=== PATIENT | male | born 1970 | race Caucasian/White ===

== ENCOUNTER → 2016-04-05 | Outpatient (CLI) | payer BC ==
--- NOTE | 2016-04-05 09:10 | XR ---
EXAMINATION TYPE: XR abdomen 2V DATE OF EXAM: 04/05/2016 9:01 AM COMPARISON: NONE HISTORY: Left upper and lower quadrant pain with constipation FINDINGS: The osseous structures are intact. The bowel gas pattern is nonspecific. Lung bases are clear. Arth ropathy of the hips noted. Findings suggest chronic acetabular labral tears. IMPRESSION: 1. Nonspecific abdomen.
== END | disposition home or self-care (01) ==
LOC: RADXRMAIN 08:47
PROVIDERS: ATTEND Internal Medicine
DX: K59.00 Constipation, unspecified (principal)
CPT/HCPCS: 74020

== ENCOUNTER 2016-04-09 15:30 | Emergency (ER) | payer BC ==
--- NOTE | 2016-04-09 17:00 | ED ---
Abdominal Pain HPI - General Chief Complaint: Abdominal Pain Stated Complaint: Abd Pain Time Seen by Provider: 04/09/16 16:27 Source: patient, RN notes reviewed Mode of arrival: ambulatory Limitations: no limitations - History of Present Illness Initial Comments: Patient is a 45-year-old male presents to the emergency room for evaluation of abdominal pain. Patient states he began developing abdominal pain about a week ago. Patient states he had not had a bowel movement from last until Sunday. Patient states he follow-up with his primary care provider was told he was constipated and was sent home with laxatives. Patient states he took milk of magnesia mixed with prune juice. Patient states he had a decent bowel movement. Patient states today while making a bowel movement he had increased midepigastric pain. Patient states he's never had pain like this before. Patient states the pain comes in waves. Patient states his bowel movement today was slightly loose. Patient denies any discoloration of his stools. Patient denies blood in his stools. Patient denies pain or burning during urination, trouble urinating or blood in urine. Patient denies any nausea or vomiting. Patient denies trying any new foods. Patient denies recent travel outside the country. Patient denies any fevers or chills. Patient denies chest pain or shortness of breath. Patient denies any history of abdominal surgeries. Patient states afraid he has an obstruction. - Related Data Home Medications Medication Instructions Recorded Confirmed Aspirin 325 mg PO DAILY 04/09/16 04/09/16 Allergies Allergy/AdvReac Type Severity Reaction Status Date / Time codeine Allergy Unknown Verified 04/09/16 16:54 Childhood Penicillins Allergy Unknown Verified 04/09/16 16:54 Childhood Review of Systems ROS Statement: Those systems with pertinent positive or pertinent negative responses have been documented in the HPI. ROS Other: All systems not noted in ROS Statement are negative. Past Medical History Additional Past Medical History / Comment(s): hypoglycemia, tinnitus History of Any Multi-Drug Resistant Organisms: None Reported Past Surgical History: No Surgical Hx Reported Past Psychological History: No Psychological Hx Reported Smoking Status: Current every day smoker Past Alcohol Use History: None Reported Past Drug Use History: Marijuana General Exam - General Exam Comments Initial Comments: Sitting in exam room in no acute distress. Limitations: no limitations General appearance: alert, in no apparent distress Head exam: Present: atraumatic, normocephalic, normal inspection Eye exam: Present: normal appearance ENT exam: Present: normal exam Neck exam: Present: normal inspection Respiratory exam: Present: normal lung sounds bilaterally. Absent: respiratory distress Cardiovascular Exam: Present: regular rate, normal rhythm, normal heart sounds GI/Abdominal exam: Present: soft, normal bowel sounds. Absent: distended, tenderness, guarding, rebound, rigid Extremities exam: Present: normal inspection Back exam: Present: normal inspection Neurological exam: Present: alert, oriented X3, CN II-XII intact, normal gait Psychiatric exam: Present: normal affect, normal mood Skin exam: Present: warm, dry, intact, normal color. Absent: rash Course Vital Signs 04/09/16 04/09/16 04/09/16 16:02 17:53 19:30 Temperature 98.4 F 98.1 F 98.2 F Pulse Rate 85 78 Respiratory 18 18 20 Rate Blood Pressure 127/88 120/65 O2 Sat by Pulse 98 98 Oximetry Medical Decision Making - Medical Decision Making Patient is a 45-year-old male who presents to the emergency room for evaluation of abdominal pain. Blood work shows no significant findings. KUB x-ray significant for a large amount of fecal material. Patient states he still has a prescription for lactulose from his primary care provider. Advised patient to use prescription and to drink plenty of water. Patient states he understands everything that was discussed with him. Return parameters discussed. Case discussed with Dr. Marcus. - Lab Data Result diagrams: 04/09/16 17:13 04/09/16 16:39 Lab Results 04/09/16 04/09/16 04/09/16 Range/Units 16:39 17:13 17:13 WBC 8.1 (3.8-10.6) k/uL RBC 4.44 (4.30-5.90) m/uL Hgb 14.1 (13.0-17.5) gm/dL Hct 42.5 (39.0-53.0) % MCV 95.9 (80.0-100.0) fL MCH 31.8 (25.0-35.0) pg MCHC 33.2 (31.0-37.0) g/dL RDW 13.0 (11.5-15.5) % Plt Count 228 (150-450) k/uL Neutrophils % 66 % Lymphocytes % 24 % Monocytes % 6 % Eosinophils % 2 % Basophils % 1 % Neutrophils # 5.4 (1.3-7.7) k/uL Lymphocytes # 2.0 (1.0-4.8) k/uL Monocytes # 0.5 (0-1.0) k/uL Eosinophils # 0.2 (0-0.7) k/uL Basophils # 0.0 (0-0.2) k/uL Sodium 139 (137-145) mmol/L Potassium 4.1 (3.5-5.1) mmol/L Chloride 104 (98-107) mmol/L Carbon Dioxide 25 (22-30) mmol/L Anion Gap 10 mmol/L BUN 14 (9-20) mg/dL Creatinine 0.70 (0.66-1.25) mg/dL Est GFR (MDRD) Af Amer >60 (>60 ml/min/1.73 sqM) Est GFR (MDRD) Non-Af >60 (>60 ml/min/1.73 sqM) Glucose 125 H (74-99) mg/dL Calcium 9.3 (8.4-10.2) mg/dL Total Bilirubin 0.3 (0.2-1.3) mg/dL AST 24 (17-59) U/L ALT 35 (21-72) U/L Alkaline Phosphatase 59 (38-126) U/L Total Protein 6.3 (6.3-8.2) g/dL Albumin 4.2 (3.5-5.0) g/dL Amylase 70 (30-110) U/L Lipase 205 (23-300) U/L Urine Color Colorless Urine Appearance Clear (Clear) Urine pH 5.0 (5.0-8.0) Ur Specific [place] 1.001 (1.001-1.035) Urine Protein Negative (Negative) Urine Glucose (UA) Negative (Negative) Urine Ketones Negative (Negative) Urine Blood Negative (Negative) Urine Nitrate Negative (Negative) Urine Bilirubin Negative (Negative) Urine Urobilinogen <2.0 (<2.0) mg/dL Ur Leukocyte Esterase Negative (Negative) - Radiology Data Radiology results: report reviewed, image reviewed Disposition Clinical Impression: Abdominal pain, Constipation Disposition: HOME SELF-CARE Condition: Good Instructions: Constipation (ED), High Fiber Diet (ED) Additional Instructions: Take prescribed laxatives as needed. Drink plenty of water. Please follow up with primary care provider in 1-2 days. If any new symptom arises, symptoms worsen or fever develops, return to ER as soon as possible. Referrals: Shayla Robledo MD [Primary Care Provider] - 1-2 days Time of Disposition: 19:25
[2016-04-09 17:31] LABS: Basophils % (A) 1 %; CH 32.8; CHCM 34.4; Eosinophils # (A) 0.2 k/uL (0-0.7); Eosinophils % (A) 2 %; HCT 42.5 % (39.0-53.0); HDW 2.26; HGB 14.1 gm/dL (13.0-17.5); Luc # (Auto) 0.11; Luc % (Auto) 1; Lymphocytes % (A) 24 %; MCH 31.8 pg (25.0-35.0); MCHC 33.2 g/dL (31.0-37.0); MCV 95.9 fL (80.0-100.0); Mean Platelet Volume 6.9; Monocytes # (A) 0.5 k/uL (0-1.0); Monocytes % (A) 6 %; Neutrophils # (A) 5.4 k/uL (1.3-7.7); Neutrophils % (A) 66 %; RBC 4.44 m/uL (4.30-5.90); WBC 8.1 k/uL (3.8-10.6); WBC (Perox) 8.19
[2016-04-09 17:35] LABS: Appearance,Urine Clear (Clear); Bilirubin,Urine Negative (Negative); Glucose,Urine (UA) Negative (Negative); Ketones,Urine Negative (Negative); Leukocyte Esterase,Urine Negative (Negative); Nitrite,Urine Negative (Negative); Protein,Urine Negative (Negative); Specific Gravity,Urine 1.001 (1.001-1.035); UA Billing (MACRO vs. MICRO) CHEM; Urobilinogen,Urine <2.0 mg/dL (<2.0)
[2016-04-09 17:50] LABS: ALT 35 U/L (21-72); AST 24 U/L (17-59); Alkaline Phosphatase 59 U/L (38-126); Amylase 70 U/L (30-110); Anion Gap 10 mmol/L; Blood Urea Nitrogen 14 mg/dL (9-20); Calcium 9.3 mg/dL (8.4-10.2); Carbon Dioxide 25 mmol/L (22-30); Chloride 104 mmol/L (98-107); Glucose 125 mg/dL (74-99); Non-African American GFR(MDRD) >60 (>60 ml/min/1.73 sqM); Potassium 4.1 mmol/L (3.5-5.1); Sodium 139 mmol/L (137-145); Total Bilirubin 0.3 mg/dL (0.2-1.3); Total Protein 6.3 g/dL (6.3-8.2)
--- NOTE | 2016-04-09 18:24 | XR ---
EXAMINATION TYPE: XR KUB DATE OF EXAM: 04/09/2016 6:18 PM COMPARISON: 04/05/2016 HISTORY: Abdominal pain TECHNIQUE: 2 views FINDINGS: Bowel gas pattern is normal. There is no sign of intestinal obstruction or pneumoperitoneum . Fecal pattern is normal. There is no sign of a mass. Lung bases are clear. There are no pathologic calcifications over the kidneys. IMPRESSION: Nonacute abdomen. No change.
[2016-04-09 19:31] VITALS: BP 120/65; PULSE 78; RESP 20; TEMP 98.2
== END 2016-04-09 19:31 | disposition home or self-care (01) ==
LOC: EC 15:30
DX: K59.00 Constipation, unspecified (principal); Z79.82 Long term (current) use of aspirin; Z88.5 Allergy status to narcotic agent; Z88.0 Allergy status to penicillin; F17.200 Nicotine dependence, unspecified, uncomplicated; F12.90 Cannabis use, unspecified, uncomplicated
CPT/HCPCS: 36415; 74000; 80053; 81003; 82150; 83690; 85025; 99284

== ENCOUNTER 2016-04-19 08:08 | Day surgery (SDC) | payer BC ==
[2016-04-14 10:24] VITALS: BMI 21.7
[~2016-04-19 08:08] MED LIST: LACTATED RINGERS 1,000 ML IV SCH
[2016-04-19 09:25] VITALS: RESP 16; TEMP 97.5
[2016-04-19 09:25] LABS: Glucose,Whole Blood 85 mg/dL (75-99)
[2016-04-19] MEDS ORDERED: LIDOCAINE 1% 20 ML VIAL (10MG/ML) FOR IV START INTRADERMA ONE (09:25)
[2016-04-19] MEDS ORDERED: GLUCAGON 1 MG/ML VIAL ONE (09:30)
[2016-04-19] MEDS ORDERED: LIDOCAINE 1% INJ 10MG/ML (20 ML MDV) ONE (09:30)
[2016-04-19] MEDS ORDERED: PROPOFOL 10 MG/ML 20 ML VIAL IV ONE (09:30)
--- NOTE | 2016-04-19 09:32 | P.GSHP ---
History of Present Illness H&P Date: 04/19/16 Chief Complaint: Constipation, abdominal pain This a 45-year-old male presents today for colonoscopy. Patient with constipation and abdominal pain. He has a strong family history of colon cancer with his mother having colon cancer. His last colonoscopy was 5 years ago. Past Medical History Additional Past Medical History / Comment(s): hypoglycemia, MENIERE'S DISEASE. 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 CONSTIPATION Past Anesthesia/Blood Transfusion Reactions: No Reported Reaction Past Psychological History: No Psychological Hx Reported Smoking Status: Current every day smoker Past Alcohol Use History: Occasional Additional Past Alcohol Use History / Comment(s): HAS BEEN SMOKING 1 PPD SINCE 1986 Past Drug Use History: Marijuana Additional Drug Use History / Comment(s): USES MAYBE EVERY 3 WEEKS - Past Family History Mother Family Medical History: Cancer Additional Family Medical History / Comment(s): COLON Brother(s) Family Medical History: Cancer Additional Family Medical History / Comment(s): 2 BROTHERS WITH SKIN CANCER Father Family Medical History: Cancer Additional Family Medical History / Comment(s): SKIN Sister(s) Family Medical History: Cancer Additional Family Medical History / Comment(s): SKIN Medications and Allergies Home Medications Medication Instructions Recorded Confirmed Type Aspirin 325 mg PO DAILY 04/09/16 04/14/16 History Allergies Allergy/AdvReac Type Severity Reaction Status Date / Time codeine Allergy Unknown Verified 04/09/16 16:54 Childhood Penicillins Allergy Unknown Verified 04/09/16 16:54 Childhood Surgical - Exam Vital Signs Temp Pulse Resp BP Pulse Ox 97.5 F L 68 16 130/67 94 L 04/19/16 09:21 04/19/16 09:21 04/19/16 09:21 04/19/16 09:21 04/19/16 09:21 - General well developed, no distress - Eyes PERRL - ENT normal pinna - Neck no masses - Respiratory normal expansion - Cardiovascular Rhythm: regular - Abdomen Abdomen: soft, tender (Mild tender midabdomen) Assessment and Plan Plan: Constipation Abdominal pain Family history colon cancer We'll perform colonoscopy
--- NOTE | 2016-04-19 09:53 | P.OP ---
Date of Procedure: 04/19/16 Preoperative Diagnosis: Abdominal pain Constipation Family history colon cancer Postoperative Diagnosis: Normal colon Procedure(s) Performed: Colonoscopy Anesthesia: MAC Surgeon: Aldair Santos Pathology: none sent Condition: stable Disposition: PACU Description of Procedure: PROCEDURE: The patient was placed on the endoscopy table in the lateral position. Digital rectal examination was performed which revealed no abnormalities. The prostate was symmetrical without nodules. Flexible colonoscope was then placed in the patient's anus and passed throughout the entire colon. The ileocecal valve was visualized. The cecum, ascending, transverse, descending and sigmoid colon were normal. The rectum was normal as well. There were no masses, polyps or diverticula noted in the entire colon. SUMMARY OF FINDINGS: Normal colonoscopy.
[2016-04-19 10:32] VITALS: BP 142/66; PULSE 60
== END 2016-04-19 11:19 | disposition home or self-care (01) ==
LOC: ORWHC2ENDO 08:08
PROVIDERS: ATTEND Surgery
DX: K59.00 Constipation, unspecified (principal); R10.9 Unspecified abdominal pain; Z80.0 Family history of malignant neoplasm of digestive organs; K04.7 Periapical abscess without sinus; H81.09 Meniere's disease, unspecified ear; F17.200 Nicotine dependence, unspecified, uncomplicated; Z79.82 Long term (current) use of aspirin; Z88.0 Allergy status to penicillin; Z88.5 Allergy status to narcotic agent
CPT/HCPCS: 45378; J1610; J2001; J2704; 99153

== ENCOUNTER 2017-05-08 23:24 | Emergency (ER) | payer BC ==
--- NOTE | 2017-05-08 23:32 | ED ---
Psych HPI - General Source: patient, EMS, RN notes reviewed Mode of arrival: EMS - History of Present Illness MD Complaint: suicidal ideation, feels depressed <Jude Marques - Last Filed: 05/09/17 00:36> <Raffi eKnnedy - Last Filed: 05/09/17 05:20> - General Stated Complaint: Overdose Time Seen by Provider: 05/08/17 23:24 - History of Present Illness Initial Comments: This is a 38-year-old male who is been drinking tonight who took 75 mg daily and into 5 mg Notrees was after an argument with his girlfriend. Express desire to hurt himself and kill himself. He does not know how much alcohol he drank. He denies any other substance at this time in by EMS he was somewhat lethargic 30 minutes prior to arrival. (Jude Marques) - Related Data Home Medications Medication Instructions Recorded Confirmed Aspirin 325 mg PO DAILY 04/09/16 04/14/16 Allergies Allergy/AdvReac Type Severity Reaction Status Date / Time codeine Allergy Unknown Verified 05/08/17 23:41 Childhood Penicillins Allergy Unknown Verified 05/08/17 23:41 Childhood Review of Systems ROS Other: All systems not noted in ROS Statement are negative. <Jude Marques - Last Filed: 05/09/17 00:36> ROS Other: All systems not noted in ROS Statement are negative. <Raffi Kennedy - Last Filed: 05/09/17 05:20> ROS Statement: Those systems with pertinent positive or pertinent negative responses have been documented in the HPI. Past Medical History Additional Past Medical History / Comment(s): hypoglycemia, MENIERE'S DISEASE. 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 CONSTIPATION Past Anesthesia/Blood Transfusion Reactions: No Reported Reaction Past Psychological History: No Psychological Hx Reported Smoking Status: Current every day smoker Past Alcohol Use History: Occasional Additional Past Alcohol Use History / Comment(s): HAS BEEN SMOKING 1 PPD SINCE 1986 Past Drug Use History: Marijuana Additional Drug Use History / Comment(s): USES MAYBE EVERY 3 WEEKS - Past Family History Mother Family Medical History: Cancer Additional Family Medical History / Comment(s): COLON Brother(s) Family Medical History: Cancer Additional Family Medical History / Comment(s): 2 BROTHERS WITH SKIN CANCER Father Family Medical History: Cancer Additional Family Medical History / Comment(s): SKIN Sister(s) Family Medical History: Cancer Additional Family Medical History / Comment(s): SKIN <Jude Marques - Last Filed: 05/09/17 00:36> General Exam Limitations: physical limitation (Patient is lethargic and weak/intoxicated) General appearance: alert, in no apparent distress Head exam: Present: atraumatic, normocephalic, normal inspection Eye exam: Present: normal appearance, PERRL, EOMI. Absent: scleral icterus, conjunctival injection, periorbital swelling ENT exam: Present: normal exam, mucous membranes moist Neck exam: Present: normal inspection. Absent: tenderness, meningismus, lymphadenopathy Respiratory exam: Present: normal lung sounds bilaterally. Absent: respiratory distress, wheezes, rales, rhonchi, stridor Cardiovascular Exam: Present: regular rate, normal rhythm, normal heart sounds. Absent: systolic murmur, diastolic murmur, rubs, gallop, clicks GI/Abdominal exam: Present: soft, normal bowel sounds. Absent: distended, tenderness, guarding, rebound, rigid Extremities exam: Present: normal inspection, full ROM, normal capillary refill. Absent: tenderness, pedal edema, joint swelling, calf tenderness Back exam: Present: normal inspection Neurological exam: Present: alert, oriented X3, CN II-XII intact Psychiatric exam: Present: depressed, flat affect, suicidal ideation Skin exam: Present: warm, dry, intact, normal color. 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 Kennedy at our shift change. (Jude Marques) 05/09/17 05:18 Patient was seen by mental health services with recommendation of discharge. Patient reevaluated and resting comfortably in bed. Patient denies suicidal ideation and does contract for safety. Patient states he did not believe the medication that he took would harm him. (Raffi Kennedy) Medical Decision Making - Lab Data Result diagrams: 05/08/17 23:30 05/08/17 23:30 - EKG Data -: EKG Interpreted by De EKG shows normal: sinus rhythm (Normal sinus rhythm rate of 89. Interval 150 to QRS duration 90 QT since QTC of 364/442 st-t wave changes) <Jude Marques - Last Filed: 05/09/17 00:36> - Lab Data Result diagrams: 05/08/17 23:30 05/08/17 23:30 <Raffi Kennedy - Last Filed: 05/09/17 05:20> - Lab Data Lab Results 05/08/17 05/08/17 05/08/17 Range/Units 23:30 23:30 23:40 WBC 8.1 (3.8-10.6) k/uL RBC 4.57 (4.30-5.90) m/uL Hgb 14.5 (13.0-17.5) gm/dL Hct 45.8 (39.0-53.0) % MCV 100.3 H (80.0-100.0) fL MCH 31.7 (25.0-35.0) pg MCHC 31.6 (31.0-37.0) g/dL RDW 12.3 (11.5-15.5) % Plt Count 280 (150-450) k/uL Neutrophils % 63 % Lymphocytes % 30 % Monocytes % 4 % Eosinophils % 2 % Basophils % 1 % Neutrophils # 5.1 (1.3-7.7) k/uL Lymphocytes # 2.4 (1.0-4.8) k/uL Monocytes # 0.3 (0-1.0) k/uL Eosinophils # 0.1 (0-0.7) k/uL Basophils # 0.0 (0-0.2) k/uL Sodium 145 (137-145) mmol/L Potassium 4.0 (3.5-5.1) mmol/L Chloride 106 (98-107) mmol/L Carbon Dioxide 27 (22-30) mmol/L Anion Gap 12 mmol/L BUN 8 L (9-20) mg/dL Creatinine 0.77 (0.66-1.25) mg/dL Est GFR (MDRD) Af Amer >60 (>60 ml/min/1.73 sqM) Est GFR (MDRD) Non-Af >60 (>60 ml/min/1.73 sqM) Glucose 83 (74-99) mg/dL Calcium 9.6 (8.4-10.2) mg/dL Total Bilirubin 0.2 (0.2-1.3) mg/dL AST 28 (17-59) U/L ALT 40 (21-72) U/L Alkaline Phosphatase 63 (38-126) U/L Total Protein 6.8 (6.3-8.2) g/dL Albumin 4.3 (3.5-5.0) g/dL Amylase 113 H (30-110) U/L Lipase 612 H (23-300) U/L Salicylates <1.0 mg/dL Urine Opiates Screen Not Detected (NotDetected) Ur Oxycodone Screen Not Detected (NotDetected) Urine Methadone Screen Not Detected (NotDetected) Ur Propoxyphene Screen Not Detected (NotDetected) Acetaminophen <10.0 ug/mL Ur Barbiturates Screen Not Detected (NotDetected) U Tricyclic Antidepress Not Detected (NotDetected) Ur Phencyclidine Scrn Not Detected (NotDetected) Ur Amphetamines Screen Not Detected (NotDetected) U Methamphetamines Scrn Not Detected (NotDetected) U Benzodiazepines Scrn Not Detected (NotDetected) Urine Cocaine Screen Not Detected (NotDetected) U Marijuana (THC) Screen Not Detected (NotDetected) Serum Alcohol 201 mg/dL Disposition <JeraldJude - Last Filed: 05/09/17 00:36> Time of Disposition: 05:20 <Raffi Kennedy - Last Filed: 05/09/17 05:20> Clinical Impression: Alcohol intoxication, Benzodiazepine overdose Disposition: HOME SELF-CARE Condition: Stable Instructions: Benzodiazepine Overdose (ED), Alcohol Intoxication (ED), Depression (ED), Suicide Prevention for Adults (ED) Additional Instructions: Not taking medications except as directed. Limit alcohol use. Return for thoughts of self-harm or worsening symptoms or other concerns. Follow-up with mental health services as directed. Referrals: Shayla Robledo MD [Primary Care Provider] - 1-2 days
[2017-05-08 23:43] LABS: Basophils % (A) 1 %; Eosinophils # (A) 0.1 k/uL (0-0.7); Eosinophils % (A) 2 %; HCT 45.8 % (39.0-53.0); HGB 14.5 gm/dL (13.0-17.5); Lymphocytes # (A) 2.4 k/uL (1.0-4.8); Lymphocytes % (A) 30 %; MCH 31.7 pg (25.0-35.0); MCHC 31.6 g/dL (31.0-37.0); MCV 100.3 fL (80.0-100.0); Monocytes # (A) 0.3 k/uL (0-1.0); Monocytes % (A) 4 %; Neutrophils # (A) 5.1 k/uL (1.3-7.7); Neutrophils % (A) 63 %; Platelet Count 280 k/uL (150-450); RBC 4.57 m/uL (4.30-5.90); RDW 12.3 % (11.5-15.5); WBC 8.1 k/uL (3.8-10.6)
[2017-05-08 23:47] VITALS: RESP 18
[2017-05-08 23:54] LABS: ALT 40 U/L (21-72); AST 28 U/L (17-59); Acetaminophen <10.0 ug/mL; Albumin 4.3 g/dL (3.5-5.0); Alkaline Phosphatase 63 U/L (38-126); Amylase 113 U/L (30-110); Anion Gap 12 mmol/L; Blood Urea Nitrogen 8 mg/dL (9-20); Calcium 9.6 mg/dL (8.4-10.2); Carbon Dioxide 27 mmol/L (22-30); Chloride 106 mmol/L (98-107); Glucose 83 mg/dL (74-99); Lipase 612 U/L (23-300); Salicylate <1.0 mg/dL; Sodium 145 mmol/L (137-145); Total Bilirubin 0.2 mg/dL (0.2-1.3); Total Protein 6.8 g/dL (6.3-8.2)
[2017-05-08 23:56] LABS: Alcohol 201 mg/dL
[2017-05-09 00:05] LABS: Amphetamine Screen,Urine Not Detected (NotDetected); Barbiturate Screen,Urine Not Detected (NotDetected); Benzodiazepines Screen,Urine Not Detected (NotDetected); Cocaine Screen,Urine Not Detected (NotDetected); Methadone Screen, Urine Not Detected (NotDetected); Opiate Screen,Urine Not Detected (NotDetected); Oxycodone Screen, Urine Not Detected (NotDetected); Phencyclidine Screen,Urine Not Detected (NotDetected); Tricyclic Antidepressant,Urine Not Detected (NotDetected); Urn Cannabinoid Scrn Not Detected (NotDetected)
[2017-05-09 05:34] VITALS: BP 135/82; PULSE 90; TEMP 98.2
== END 2017-05-09 05:44 | disposition home or self-care (01) ==
LOC: EC 23:24
DX: T42.4X2A Poisoning by benzodiazepines, intentional self-harm, initial encounter (principal); F10.120 Alcohol abuse with intoxication, uncomplicated; F17.210 Nicotine dependence, cigarettes, uncomplicated; Z79.82 Long term (current) use of aspirin; Z88.0 Allergy status to penicillin; Z88.5 Allergy status to narcotic agent
CPT/HCPCS: 36415; 80053; 80306; 80320; 82075; 82150; 83520; 83690; 85025; 93005; 99285

== ENCOUNTER 2020-07-15 11:20 | Day surgery (SDC) | payer BC, OTHER ==
[2020-07-13 15:12] VITALS: BMI 21.1
[2020-07-15 13:03] LABS: Glucose,Whole Blood 91 mg/dL (75-99)
[2020-07-15 13:04] VITALS: TEMP 98.2
[2020-07-15] MEDS ORDERED: LIDOCAINE 1% INJ 10MG/ML (20 ML MDV) ONE (13:14)
[2020-07-15] MEDS ORDERED: PROPOFOL 10 MG/ML 20 ML VIAL IV ONE (13:14)
--- NOTE | 2020-07-15 13:17 | P.GSHP ---
History of Present Illness H&P Date: 07/15/20 Chief Complaint: GI bleed This a 49-year-old male who presents today for EGD colonoscopy. He's had issues with GI bleed. Past Medical History Additional Past Medical History / Comment(s): hypoglycemia, MENIERE'S DISEASE, irregular bowel movements last 1 1/2 months, History of Any Multi-Drug Resistant Organisms: None Reported Past Surgical History: Orthopedic Surgery Additional Past Surgical History / Comment(s): surgery left middle finger to remove glass Past Anesthesia/Blood Transfusion Reactions: No Reported Reaction Additional Past Anesthesia/Blood Transfusion Reaction / Comment(s): vertigo constantly Smoking Status: Current every day smoker - Past Family History Mother Family Medical History: Cancer Additional Family Medical History / Comment(s): COLON, skin, breast, lung Brother(s) Family Medical History: Cancer Additional Family Medical History / Comment(s): 2 BROTHERS WITH SKIN CANCER Father Family Medical History: Cancer Additional Family Medical History / Comment(s): SKIN Sister(s) Family Medical History: Cancer Additional Family Medical History / Comment(s): SKIN Medications and Allergies Home Medications Medication Instructions Recorded Confirmed Type Aspirin 325 mg PO DAILY PRN 04/09/16 07/13/20 History Multivitamins, Thera [Multivitamin 1 tab PO DAILY 07/13/20 07/13/20 History (formulary)] Allergies Allergy/AdvReac Type Severity Reaction Status Date / Time codeine Allergy Unknown Verified 07/13/20 15:02 Childhood Penicillins Allergy Unknown Verified 07/13/20 15:02 Childhood Surgical - Exam Vital Signs Temp Pulse Resp BP Pulse Ox 98.2 F 69 20 139/70 98 07/15/20 12:50 07/15/20 12:50 07/15/20 12:50 07/15/20 12:50 07/15/20 12:50 - General well developed, well nourished, no distress - Eyes PERRL - ENT normal pinna - Neck no masses - Respiratory normal expansion - Cardiovascular Rhythm: regular - Abdomen Abdomen: soft, non tender Assessment and Plan Assessment: GI bleed. We'll perform colonoscopy.
--- NOTE | 2020-07-15 13:36 | P.OP ---
Date of Procedure: 07/15/20 Preoperative Diagnosis: GI bleed Postoperative Diagnosis: Antral gastritis Duodenitis Interventional hemorrhoids Procedure(s) Performed: EGD Colonoscopy Anesthesia: MAC Surgeon: Aldair Santos Pathology: other (Antrum, duodenum) Condition: stable Disposition: PACU Description of Procedure: The patient's placed on the endoscopy table in the lateral position. He received IV sedation. The gastroscope placed oropharynx passed in the esophagus and stomach. The scope was placed through the pylorus. The first and second portion of the duodenum. Mildly inflamed. A biopsies performed. Scope was then brought back the antrum and this was mildly inflamed a biopsies performed. The scope was retroflexed and remainder stomach appeared normal. The GE junction was examined. There is no evidence of hiatal hernia. The distal esophagus appeared normal. The GE junction was at 47. The proximal esophagus appeared normal. Scope was withdrawn for patient. Next digital rectal exam was performed which revealed internal hemorrhoids. The flexible colonoscope was then placed patient anus passed rotator entire colon. The ileocecal valve was visualized. The cecum, ascending and transverse colon appeared normal. The colon was quite tortuous. The transverse descending and sigmoid colon appeared normal. Scope was brought back the rectum this was normal. Scope was withdrawn for patient.
[2020-07-15 13:42] VITALS: RESP 16
[2020-07-15 13:58] VITALS: BP 125/78; PULSE 68
== END 2020-07-15 14:13 | disposition home or self-care (01) ==
LOC: ORWHC2ENDO 11:20
PROVIDERS: ATTEND Surgery
DX: K29.80 Duodenitis without bleeding (principal); K29.50 Unspecified chronic gastritis without bleeding; K64.8 Other hemorrhoids; E16.2 Hypoglycemia, unspecified; K92.2 Gastrointestinal hemorrhage, unspecified; H81.09 Meniere's disease, unspecified ear; Z98.890 Other specified postprocedural states; R42 Dizziness and giddiness; F17.200 Nicotine dependence, unspecified, uncomplicated; Z80.0 Family history of malignant neoplasm of digestive organs; Z80.3 Family history of malignant neoplasm of breast; Z80.1 Family history of malignant neoplasm of trachea, bronchus and lung; Z80.8 Family history of malignant neoplasm of other organs or systems; Z88.5 Allergy status to narcotic agent; Z88.0 Allergy status to penicillin
CPT/HCPCS: 88305; 45378; 43239; J2001; J2704

== ENCOUNTER 2021-07-26 08:36 | Emergency (ER) | payer OTHER ==
[2021-07-26 08:50] VITALS: TEMP 98.6
[2021-07-26] MEDS ORDERED: SODIUM CHLORIDE 0.9% 1,000 ML IV STA (09:16)
[2021-07-26] MEDS ORDERED: SODIUM CHLORIDE 0.9% 500 ML 500 ML IV STA (09:16)
[2021-07-26 09:44] VITALS: RESP 18
--- NOTE | 2021-07-26 09:49 | ED ---
Abdominal Pain HPI - General Chief Complaint: Abdominal Pain Stated Complaint: right side pain Time Seen by Provider: 07/26/21 08:52 Source: patient, RN notes reviewed Mode of arrival: ambulatory Limitations: no limitations - History of Present Illness Initial Comments: 50-year-old male presents emergency Department chief complaint right flank pain. Patient states started last week but has been increasing in symptoms. Nothing really makes the pain feel better or worse a nausea no vomiting he states initially that he just injured himself. He's had no prior abdominal surgeries no dysuria no hematuria no diarrhea no constipation patient states that he has no radicular symptoms. - Related Data Home Medications Medication Instructions Recorded Confirmed Aspirin 325 mg PO DAILY PRN 04/09/16 07/26/21 Vitamin B Complex 1 cap PO DAILY 07/26/21 07/26/21 Previous Rx's Medication Instructions Recorded Tamsulosin [Flomax] 0.4 mg PO DAILY #14 cap 07/26/21 Allergies Allergy/AdvReac Type Severity Reaction Status Date / Time codeine Allergy Unknown Verified 07/26/21 10:17 Childhood Penicillins Allergy Unknown Verified 07/26/21 10:17 Childhood Review of Systems ROS Statement: Those systems with pertinent positive or pertinent negative responses have been documented in the HPI. ROS Other: All systems not noted in ROS Statement are negative. Past Medical History Past Medical History: Asthma Additional Past Medical History / Comment(s): hypoglycemia, MENIERE'S DISEASE, irregular bowel movements last 1 1/2 months, History of Any Multi-Drug Resistant Organisms: None Reported Past Surgical History: Orthopedic Surgery Additional Past Surgical History / Comment(s): surgery left middle finger to remove glass Past Anesthesia/Blood Transfusion Reactions: No Reported Reaction Additional Past Anesthesia/Blood Transfusion Reaction / Comment(s): vertigo constantly Past Psychological History: No Psychological Hx Reported Smoking Status: Current every day smoker Past Alcohol Use History: Occasional Past Drug Use History: Marijuana - Past Family History Mother Family Medical History: Cancer Additional Family Medical History / Comment(s): COLON, skin, breast, lung Brother(s) Family Medical History: Cancer Additional Family Medical History / Comment(s): 2 BROTHERS WITH SKIN CANCER Father Family Medical History: Cancer Additional Family Medical History / Comment(s): SKIN Sister(s) Family Medical History: Cancer Additional Family Medical History / Comment(s): SKIN General Exam Limitations: no limitations General appearance: alert, in no apparent distress Head exam: Present: atraumatic, normocephalic, normal inspection Neck exam: Present: normal inspection. Absent: tenderness, meningismus, lymph adenopathy Respiratory exam: Present: normal lung sounds bilaterally. Absent: respiratory distress, wheezes, rales, rhonchi, stridor Cardiovascular Exam: Present: regular rate, normal rhythm, normal heart sounds. Absent: systolic murmur, diastolic murmur, rubs, gallop, clicks GI/Abdominal exam: Present: soft, tenderness (Right lower right flank), normal bowel sounds. Absent: distended, guarding, rebound, rigid Back exam: Present: CVA tenderness (R). Absent: CVA tenderness (L) Neurological exam: Present: alert Skin exam: Present: warm, dry, intact, normal color. Absent: rash Course Vital Signs 07/26/21 07/26/21 08:48 09:31 Temperature 98.6 F Pulse Rate 66 62 Respiratory 20 18 Rate Blood Pressure 141/85 138/82 O2 Sat by Pulse 99 96 Oximetry Medical Decision Making - Medical Decision Making 50-year-old male presents from for right-sided flank pain. There is no definite stone on CT. Urinalysis and labs unremarkable CT does show calcifications in enlarged prostate patient questioned he states he does have some hesitancy centimeters prostate checked. Patient will follow-up with urologist patient may have had abdominal wall injury as this is reproducible pain states that he does large amount of cigarettes causing injury. Patient understands the importance of following up with neurologist for concerns of prostate cancer. - Lab Data Result diagrams: 07/26/21 09:35 07/26/21 09:35 Lab Results 07/26/21 07/26/21 07/26/21 Range/Units 09:35 09:35 09:35 WBC 6.8 (3.8-10.6) k/uL RBC 4.49 (4.30-5.90) m/uL Hgb 15.0 (13.0-17.5) gm/dL Hct 45.5 (39.0-53.0) % MCV 101.4 H (80.0-100.0) fL MCH 33.4 (25.0-35.0) pg MCHC 32.9 (31.0-37.0) g/dL RDW 12.8 (11.5-15.5) % Plt Count 277 (150-450) k/uL MPV 6.6 Neutrophils % 70 % Lymphocytes % 21 % Monocytes % 5 % Eosinophils % 2 % Basophils % 1 % Neutrophils # 4.8 (1.3-7.7) k/uL Lymphocytes # 1.4 (1.0-4.8) k/uL Monocytes # 0.3 (0-1.0) k/uL Eosinophils # 0.1 (0-0.7) k/uL Basophils # 0.0 (0-0.2) k/uL Sodium 139 (137-145) mmol/L Potassium 4.3 (3.5-5.1) mmol/L Chloride 108 H (98-107) mmol/L Carbon Dioxide 26 (22-30) mmol/L Anion Gap 5 mmol/L BUN 14 (9-20) mg/dL Creatinine 0.77 (0.66-1.25) mg/dL Est GFR (CKD-EPI)AfAm >90 (>60 ml/min/1.73 sqM) Est GFR (CKD-EPI)NonAf >90 (>60 ml/min/1.73 sqM) Glucose 84 (74-99) mg/dL Calcium 9.2 (8.4-10.2) mg/dL Total Bilirubin 0.4 (0.2-1.3) mg/dL AST 24 (17-59) U/L ALT 23 (4-49) U/L Alkaline Phosphatase 57 (38-126) U/L Total Protein 6.7 (6.3-8.2) g/dL Albumin 4.2 (3.5-5.0) g/dL Amylase 97 (30-110) U/L Lipase 257 (23-300) U/L Urine Color Light Yellow Urine Appearance Clear (Clear) Urine pH 5.5 (5.0-8.0) Ur Specific [place] 1.006 (1.001-1.035) Urine Protein Negative (Negative) Urine Glucose (UA) Negative (Negative) Urine Ketones Negative (Negative) Urine Blood Negative (Negative) Urine Nitrite Negative (Negative) Urine Bilirubin Negative (Negative) Urine Urobilinogen <2.0 (<2.0) mg/dL Ur Leukocyte Esterase Negative (Negative) Disposition Clinical Impression: Prostate hypertrophy, Abdominal pain Disposition: HOME SELF-CARE Condition: Stable Instructions (If sedation given, give patient instructions): Abdominal Pain (ED) Additional Instructions: Please return to the Emergency Department if symptoms worsen or any other concerns. Prescriptions: Tamsulosin [Flomax] 0.4 mg PO DAILY #14 cap Is patient prescribed a controlled substance at d/c from ED?: No Referrals: None,Stated [Primary Care Provider] - 1-2 days Aguilar Smith MD [STAFF PHYSICIAN] - 1-2 days Time of Disposition: 10:46
[2021-07-26 09:51] LABS: Basophils % (A) 1 %; Eosinophils # (A) 0.1 k/uL (0-0.7); Eosinophils % (A) 2 %; HCT 45.5 % (39.0-53.0); Lymphocytes # (A) 1.4 k/uL (1.0-4.8); Lymphocytes % (A) 21 %; MCH 33.4 pg (25.0-35.0); MCHC 32.9 g/dL (31.0-37.0); MCV 101.4 fL (80.0-100.0); Mean Platelet Volume 6.6; Monocytes # (A) 0.3 k/uL (0-1.0); Monocytes % (A) 5 %; Neutrophils # (A) 4.8 k/uL (1.3-7.7); Neutrophils % (A) 70 %; Platelet Count 277 k/uL (150-450); RBC 4.49 m/uL (4.30-5.90); RDW 12.8 % (11.5-15.5); WBC 6.8 k/uL (3.8-10.6)
[2021-07-26 09:52] LABS: Appearance,Urine Clear (Clear); Bilirubin,Urine Negative (Negative); Blood,Urine Negative (Negative); Color,Urine Light Yellow; Glucose,Urine (UA) Negative (Negative); Ketones,Urine Negative (Negative); Leukocyte Esterase,Urine Negative (Negative); Nitrite,Urine Negative (Negative); PH, Urine 5.5 (5.0-8.0); Protein,Urine Negative (Negative); Specific Gravity,Urine 1.006 (1.001-1.035); Urobilinogen,Urine <2.0 mg/dL (<2.0)
[2021-07-26 10:03] LABS: ALT 23 U/L (4-49); AST 24 U/L (17-59); African American GFR (CKD) >90 (>60 ml/min/1.73 sqM); Albumin 4.2 g/dL (3.5-5.0); Alkaline Phosphatase 57 U/L (38-126); Amylase 97 U/L (30-110); Anion Gap 5 mmol/L; Blood Urea Nitrogen 14 mg/dL (9-20); Calcium 9.2 mg/dL (8.4-10.2); Carbon Dioxide 26 mmol/L (22-30); Chloride 108 mmol/L (98-107); Glucose 84 mg/dL (74-99); Lipase 257 U/L (23-300); Non-African American GFR(CKD) >90 (>60 ml/min/1.73 sqM); Potassium 4.3 mmol/L (3.5-5.1); Sodium 139 mmol/L (137-145); Total Bilirubin 0.4 mg/dL (0.2-1.3); Total Protein 6.7 g/dL (6.3-8.2)
--- NOTE | 2021-07-26 10:17 | CT ---
EXAMINATION TYPE: CT abdomen pelvis wo con DATE OF EXAM: 07/26/2021 COMPARISON: None HISTORY: Right flank pain. CT DLP: 390.3 mGycm Automated exposure control for dose reduction was used. TECHNIQUE: Helical acquisition of images was performed from the lung bases through the pelvis. FINDINGS: LUNG BASES: Emphysematous changes are noted LIVER/GB: No significant abnormality is appreciated. PANCREAS: No significant abnormality is seen. SPLEEN: No significant abnormality is seen. ADRENALS: No significant abnormality is seen. KIDNEYS: No significant abnormality is seen. URINARY BLADDER: No significant abnormality is seen. ADENOPATHY: None visualized. OSSEOUS STRUCTURES: Hypertrophic and degenerative changes spine. BOWEL: No significant abnormality is seen. OTHER: Aorta of normal caliber. Prostate calcifications are seen is mild bladder wall thickening. IMPRESSION: 1. Correlate for prostate hypertrophy. Additionally correlate for mild cystitis with mild circumferen tial bladder wall thickening incidentally noted.
[2021-07-26] MEDS ORDERED: KETOROLAC 15 MG/ML 1 ML VIAL IVP STA (10:20)
[2021-07-26] MEDS ORDERED: HYDROmorphone 0.5 MG/0.5 ML SYRINGE IVP STA (10:20)
[2021-07-26] MEDS ORDERED: ONDANSETRON 4 MG/2 ML VIAL IVP STA (10:21)
[2021-07-26] MEDS ORDERED: traMADol 50 MG STARTER PACK 3 TAB BTL PO STA (10:45)
[2021-07-26 11:06] VITALS: BP 135/75
[2021-07-26 11:38] VITALS: PULSE 58
== END 2021-07-26 11:47 | disposition home or self-care (01) ==
LOC: EC 08:36
DX: N40.0 Benign prostatic hyperplasia without lower urinary tract symptoms (principal); J45.909 Unspecified asthma, uncomplicated; F17.200 Nicotine dependence, unspecified, uncomplicated; Z88.0 Allergy status to penicillin; Z88.5 Allergy status to narcotic agent
CPT/HCPCS: 36415; 80053; 82150; 83690; 85025; 81003; 74176; 99284; 96374; 96375; J2405; J1885; J1170

== ENCOUNTER → 2021-08-05 | Outpatient (CLI) | payer OTHER | END | disposition home or self-care (01) | LOC: LABWHC1 13:39 | PROVIDERS: ATTEND Urology | DX: N40.1 Benign prostatic hyperplasia with lower urinary tract symptoms (principal) | CPT/HCPCS: 36415; 84153 ==

== ENCOUNTER → 2022-06-09 | Outpatient (CLI) | payer OTHER ==
[2022-06-09 17:11] LABS: HCT 45.3 % (39.6-50.0); HGB 14.6 g/dL (13.0-17.0); MCH 31.9 pg (27.0-32.0); MCHC 32.2 g/dL (32.0-37.0); MCV 99.1 fL (80.0-97.0); NRBC Per 100 WBC 0 /100 WBCS (0.0-0.0); Platelet Count 287 X 10*3/uL (140-440); RBC 4.57 X 10*6/uL (4.40-5.60); RDW 12.9 % (11.5-14.5)
[2022-06-09 17:15] LABS: Luteinizing Hormone 6.3 mIU/mL
== END | disposition home or self-care (01) ==
LOC: LABWHC1 09:33
PROVIDERS: ATTEND Urology
DX: E29.1 Testicular hypofunction (principal)
CPT/HCPCS: 36415; 83002; 84403; 85027

== ENCOUNTER 2022-07-16 13:16 | Emergency (ER) | payer OTHER ==
[2022-07-16 13:34] VITALS: TEMP 98.2
[2022-07-16] MEDS ORDERED: KETOROLAC 15 MG/ML 1 ML VIAL IM STA (13:43)
[2022-07-16] MEDS ORDERED: traMADol 50 MG TAB PO STA (13:43)
--- NOTE | 2022-07-16 13:56 | ED ---
Fall HPI - General Chief Complaint: Fall Stated Complaint: Fall Time Seen by Provider: 07/16/22 13:36 Source: patient, RN notes reviewed Mode of arrival: ambulatory Limitations: no limitations - History of Present Illness Initial Comments: This is a 51-year-old male who presents emergency department for a fall. States that yesterday, he was standing on a chair when he lost his balance and fell backwards. When he fell backwards, he hit his head and injured his lower back. Denies any loss of consciousness. He is not taking any blood thinners. He c ontinues to have a headache and severe pain to the lower back and buttocks. He is not taking anything for his pain. Denies any loss of bowel/bladder control or saddle anesthesia. Denies any fevers, chills, sore throat, cough, dyspnea, chest pain, palpitations, abdominal pain, nausea, vomiting, or diarrhea. MD Complaint: fall Onset/Timin -: days(s) Fall From: standing Fall Witnessed: yes, by family Place Fall Occurred: home Loss of Consciousness: none - Related Data Previous Rx's Medication Instructions Recorded Omeprazole 40 mg PO DAILY #90 cap 05/29/22 Ketorolac [Toradol] 10 mg PO Q6HR PRN #12 tab 07/16/22 traMADol HCl [Ultram] 50 mg PO Q6HR PRN 3 Days #12 tab 07/16/22 Allergies Allergy/AdvReac Type Severity Reaction Status Date / Time codeine Allergy Unknown Verified 07/16/22 13:31 Childhood Penicillins Allergy Unknown Verified 07/16/22 13:31 Childhood Review of Systems ROS Statement: Those systems with pertinent positive or pertinent negative responses have been documented in the HPI. ROS Other: All systems not noted in ROS Statement are negative. Past Medical History Past Medical History: Asthma Additional Past Medical History / Comment(s): childhood asthma, hypoglycemia, MENIERE'S DISEASE , kidney stones History of Any Multi-Drug Resistant Organisms: None Reported Past Surgical History: Orthopedic Surgery Additional Past Surgical History / Comment(s): surgery left middle finger to remove glass Past Anesthesia/Blood Transfusion Reactions: No Reported Reaction Additional Past Anesthesia/Blood Transfusion Reaction / Comment(s): vertigo issues Past Psychological History: No Psychological Hx Reported Smoking Status: Current every day smoker Past Alcohol Use History: Occasional Past Drug Use History: Marijuana - Past Family History Mother Family Medical History: Cancer Additional Family Medical History / Comment(s): COLON, skin, breast, lung Brother(s) Family Medical History: Cancer Additional Family Medical History / Comment(s): 2 BROTHERS WITH SKIN CANCER Father Family Medical History: Cancer Additional Family Medical History / Comment(s): SKIN Sister(s) Family Medical History: Cancer Additional Family Medical History / Comment(s): SKIN General Exam Limitations: no limitations General appearance: alert, in distress Head exam: Present: atraumatic, normocephalic, normal inspection Eye exam: Present: normal appearance, PERRL, EOMI. Absent: scleral icterus, conjunctival injection, periorbital swelling Respiratory exam: Present: normal lung sounds bilaterally. Absent: respiratory distress, wheezes, rales, rhonchi, stridor Cardiovascular Exam: Present: regular rate, normal rhythm, normal heart sounds. Absent: systolic murmur, diastolic murmur, rubs, gallop, clicks Back exam: Present: normal inspection, tenderness (lumbosacral spine) Neurological exam: Present: alert, oriented X3, CN II-XII intact Psychiatric exam: Present: normal affect, normal mood Skin exam: Present: warm, dry, intact, normal color. Absent: rash Course Vital Signs 07/16/22 13:31 Temperature 98.2 F Pulse Rate 89 Respiratory 18 Rate Blood Pressure 133/74 O2 Sat by Pulse 98 Oximetry Medical Decision Making - Medical Decision Making This is a 51-year-old male who presents to the emergency department for a fall. Was pt. sent in by a medical professional or institution? @ -No Did you speak to anyone other than the patient for history? @ -No Did you review nursing and triage notes? @ -Yes, and I agree, it is accurate with regards to the patient's symptoms. Were old charts reviewed? @ -No Differential Diagnosis? @ -Differential Back Pain: Strain, zoster, cauda equina syndrome, epidural abscess, vertebral osteomyelitis, discitis, fracture, subluxation, disc herniation, DJD, spinal stenosis, dissection, AAA, pancreatitis, peptic ulcer disease, pyelonephritis, kidney stone, this is not meant to be an all-inclusive list. CT interpreted by me (1pt min.)? @ -Computed tomography scan of the brain/C-spine, lumbar spine, and pelvis obtained. My interpretation identifies no evidence of an acute intracranial hemorrhage, skull fracture, or cervical spine fracture on the computed tomography scan of the brain/C-spine. On the lumbar spine and pelvis CT, I identify no evidence of any acute fractures. What testing was considered but not performed? (CT, X-rays, U/S, labs)? Why? @ -None What meds were considered but not given? Why? @ -None Did you discuss the management of the patient with other professionals? @ -No Did you reconcile home meds? @ -No Was smoking cessation discussed for >3mins.? @ -No Was critical care preformed (if so, how long)? @ -No Were there social determinants of health that impacted care today? How? (Homelessness, low income, unemployed, alcoholism, drug addiction, transportation, low edu. Level, literacy, decrease access to med. care, retirement, rehab)? @ -No Was there de-escalation of care discussed even if they declined? (Discuss DNR or withdrawal of care, Hospice)? @ -No What co-morbidities impacted this encounter? (DM, HTN, Smoking, COPD, CAD, Cancer, CVA, Hep., AIDS, mental health diagnosis, sleep apnea, morbid obesity)? @ -None Was patient admitted / discharged? @ -Discharged. Computed tomography scan of the brain/C-spine, lumbar spine, and pelvis obtained. All imaging reveals no acute findings. Patient given IM Tor adol and tramadol with improvement in symptoms. Advised the patient that this most likely a contusion. Patient is instructed to apply ice to the areas of pain for 15-20 minutes every 2-3 hours for the first 2-3 days followed by heat there afterwards. Prescription for Toradol and tramadol provided with dosing instructions reviewed. Patient is instructed to take the Toradol with Tylenol if needed and avoid any other [id number] anti-inflammatories such as ibuprofen with the Toradol. He is also advised to take the Tramadol sparingly when the pain is the most severe and to avoid driving or operate machinery when taking it, as it is sedating. Undiagnosed new problem with uncertain prognosis? @ -None Drug Therapy requiring intensive monitoring for toxicity (Heparin, Nitro, Insulin, Cardizem)? @ -None Were any procedures done? @ -None Diagnosis/symptom? @ -Fall, contusion of lumbar spine. Acute, or Chronic, or Acute on Chronic? @ -Acute Uncomplicated (without systemic symptoms) or Complicated (systemic symptoms)? @ -Uncomplicated Side effects of treatment? @ -None Exacerbation, Progression, or Severe Exacerbation] @ -Not applicable Poses a threat to life or bodily function? @ -The pain has been limiting his ability to function for the mean time. Return precautions reviewed in depth, the patient is instructed to return to the emergency department with any new, worsening, or concerning symptoms. Patient ve rbalized understanding. This case was discussed in detail with the attending ED physician, Dr. Norwood. Presentation, findings, and treatment plan discussed in detail as well. - Radiology Data Radiology results: report reviewed, image reviewed Disposition Clinical Impression: Fall, Contusion of lower back and pelvis, initial encounter Disposition: HOME SELF-CARE Instructions (If sedation given, give patient instructions): Contusion in Adults (ED) Additional Instructions: Return to the emergency department with any new, worsening, or concerning symptoms. You may take either the Toradol or ibuprofen for pain relief. He can take either one of these with Tylenol. Take the tramadol sparingly when your pain is the most severe and avoid driving or operating machinery when taking thi s, as it will be sedating. Apply ice to the affected areas for 15-20 minutes every 2-3 hours. Follow up with your primary care provider in 1-2 days. Prescriptions: Ketorolac [Toradol] 10 mg PO Q6HR PRN #12 tab PRN Reason: Pain traMADol HCl [Ultram] 50 mg PO Q6HR PRN 3 Days #12 tab PRN Reason: Pain Is patient prescribed a controlled substance at d/c from ED?: Yes When asked, does pt state using other controlled substances?: No If prescribed controlled substance>3 days was MAPS reviewed?: Prescribed <3 Days Referrals: Nabeel Davies MD [Primary Care Provider] - 1-2 days
--- NOTE | 2022-07-16 14:57 | CT ---
EXAMINATION TYPE: CT brain [place] bloom con DATE OF EXAM: 07/16/2022 COMPARISON: None HISTORY: fall CT DLP: 1446.[address] of the brain was performed. The ventricles, basal cisterns and sulci overlying the cerebral convexities demonstrate mild enlargem ent. There is no evidence for intracranial hemorrhage or sulcal effacement. There is decreased attenuatio n about the periventricular white matter and deep white matter of both cerebral hemispheres, compatib le with chronic small vessel ischemia. No mass effects are seen. If symptoms persist consider MRI. Osseous calvarium is intact. Moderate opacification right maxillary sinus. The urinary IMPRESSION: 1. Age related atrophic and chronic small vessel ischemic change without acute intracranial process seen at this time. CT Cervical Spine: Unenhanced CT of the cervical spine was performed with bone and soft tissue window settings submitted . Coronal and sagittal reconstruction is obtained. There is normal alignment and prevertebral soft tissues. No evidence for acute cervical fracture . Scattered degenerative disc disease and spondylosis. Biapical scarring. Emphysematous changes upper lobes. In the IMPRESSION: 1. No evidence for acute fracture or subluxation of the cervical spine.
--- NOTE | 2022-07-16 15:02 | CT ---
EXAMINATION TYPE: CT lumbar spine wo con, CT pelvis wo con DATE OF EXAM: 07/16/2022 2:44 PM COMPARISON: None HISTORY: fall, c/o low back and pelvic pain CT DLP: combined DLP 813 mGycm Automated exposure control for dose reduction was used. Unenhanced CT of the lumbar spine and pelvis was performed. Bone and soft tissue window settings are submitted as well as coronal and sagittal reconstructions. L1-L2: Normal disc space height. No disc herniation protrusion or central stenosis. No facet joint arthropathy. No evidence for foraminal encroachment. L2-L3: Normal disc space height. No disc herniation protrusion or central stenosis. No facet joint arthropathy. No evidence for foraminal encroachment. L3-L4: Normal disc space height. No disc herniation protrusion or central stenosis. No facet joint arthropathy. No evidence for foraminal encroachment. L4-L5: There is mild disc desiccation posterior disc bulge. Hypertrophy of the ligamentum flavum cont ributes to mild central stenosis. Mild bilateral neural foraminal encroachment. No vivian disc herniat ion. L5-S1: Mild disc space narrowing. Posterior disc bulge mildly degree. Mild effacement ventral thecal sac however there is no evidence for herniation or central stenosis. Neural foramina are patent bilat erally. No evidence for lumbar fracture or malalignment. CT PELVIS: No evidence for fracture of the pelvis, sacrum or hips. No pelvic masses seen. IMPRESSION: 1. No evidence for fracture of the lumbar spine or pelvis. 2. Mild central stenosis at L4-5.
[2022-07-16] MEDS ORDERED: traMADol 50 MG STARTER PACK 3 TAB BTL PO STA (15:29)
[2022-07-16] MEDS ORDERED: IBUPROFEN 600 MG STARTER PACK 4 TAB BTL PO STA (15:29)
[2022-07-16 16:00] VITALS: BP 146/81; PULSE 72; RESP 16
== END 2022-07-16 16:00 | disposition home or self-care (01) ==
LOC: EC 13:16
DX: S30.0XXA Contusion of lower back and pelvis, initial encounter (principal); J45.909 Unspecified asthma, uncomplicated; F12.90 Cannabis use, unspecified, uncomplicated; F17.200 Nicotine dependence, unspecified, uncomplicated; Z88.0 Allergy status to penicillin; Z88.8 Allergy status to other drugs, medicaments and biological substances; W01.10XA Fall on same level from slipping, tripping and stumbling with subsequent striking against unspecified object, initial encounter
CPT/HCPCS: 72192; 72125; 72131; 70450; 99284; 96372; J1885

== ENCOUNTER → 2022-08-04 | Outpatient (CLI) | payer OTHER ==
--- NOTE | 2022-08-04 13:06 | MR ---
EXAMINATION TYPE: MR lumbar spine wo con DATE OF EXAM: 08/04/2022 COMPARISON: Lumbar spine radiograph 08/01/2022, CT lumbar spine 07/16/2022 HISTORY: Fall, pain in low back and tailbone TECHNIQUE: Multiplanar, multisequence images of the lumbar spine were acquired without IV contrast. Findings: Acute nondisplaced fracture of the S4 vertebral body with associated edema. Additional edema identifi ed within the S3 vertebral body. Nondisplaced acute fracture extends through the spinous process of t he S3 vertebral body. There is associated soft tissue edema in the surrounding soft tissues. No humberto ashley masses are identified. Conus medullaris has a normal appearance. T12-L1: Central disc protrusion with mild central canal and stenosis. The neural foramina are patent bilaterally. L1-L2: Broad-based disc bulge with ligament flavum buckling and facet arthropathy resulting in mild c entral canal stenosis. The neural foramina are patent bilaterally. L2-L3: Broad-based disc bulge with ligament flavum buckling and facet arthropathy resulting in mild c entral canal stenosis. The neural foramina are patent bilaterally. L3-L4: No disc herniation. No significant central canal stenosis. Facet arthropathy with ligamentum f lavum buckling. The neural foramina are patent bilaterally. L4-L5: Broad-based disc bulge without significant central canal stenosis. There is facet arthropathy and ligamentum flavum buckling. Mild bilateral neural foraminal stenosis. L5-S1: Broad-based disc bulge with annular fissure. No significant central canal stenosis. Facet arth ropathy with ligamentum flavum buckling identified. The neural foramina are patent bilaterally. IMPRESSION: 1. Acute nondisplaced fracture of the S4 vertebral body and S3 spinous process with additional edema in the surrounding soft tissues and involving the S3 and S4 vertebral bodies. 2. T12-L1 central disc herniation with mild central canal stenosis. 3. Mild multilevel degenerative disc disease.
== END | disposition home or self-care (01) ==
LOC: RADMRIMAIN 12:01
PROVIDERS: ATTEND Nurse Practitioner Family
DX: S32.110A Nondisplaced Zone I fracture of sacrum, initial encounter for closed fracture (principal); M51.25 Other intervertebral disc displacement, thoracolumbar region; M51.36 Other intervertebral disc degeneration, lumbar region; M99.72 Connective tissue and disc stenosis of intervertebral foramina of thoracic region; M48.061 Spinal stenosis, lumbar region without neurogenic claudication
CPT/HCPCS: 72148

== ENCOUNTER → 2023-01-17 | Outpatient (CLI) | payer OTHER ==
--- NOTE | 2023-01-17 14:58 | MR ---
EXAMINATION TYPE: MR knee LT wo con DATE OF EXAM: 01/17/2023 COMPARISON: None HISTORY: Left knee pain TECHNIQUE: Multiplanar, multisequence imaging of the left knee is performed without IV contrast. FINDINGS: MEDIAL MENISCUS: Oblique tear posterior horn medial meniscus. Anterior horn is intact. LATERAL MENISCUS: Anterior and posterior horns are intact without tear. CRUCIATE LIGAMENTS: The anterior and posterior cruciate ligaments are intact and unremarkable. COLLATERAL LIGAMENTS: The medial collateral ligament and lateral collateral ligament complex are inta ct and unremarkable. EXTENSOR MECHANISM: Visualized quadriceps and patellar tendons are intact. EFFUSION: No significant suprapatellar joint effusion. POPLITEAL CYST: Leal's cyst noted measuring approximately 3 cm in craniocaudal dimension. TRICOMPARTMENT SPACES: Mild narrowing medial tibiofemoral joint space. CARTILAGE: Intact BONE MARROW SIGNAL: No focal abnormal marrow signal is appreciated. OTHER: No additional significant abnormality is appreciated. IMPRESSION: 1. Oblique tear posterior horn medial meniscus extending to the tibial surface. 2. Leal's cyst.
== END | disposition home or self-care (01) ==
LOC: RADMRIMAIN 13:02
PROVIDERS: ATTEND Orthopaedic Surgery
DX: M71.22 Synovial cyst of popliteal space [Baker], left knee (principal); M23.322 Other meniscus derangements, posterior horn of medial meniscus, left knee

== ENCOUNTER → 2023-02-01 | Outpatient (CLI) | payer OTHER | END | disposition home or self-care (01) | LOC: LABPAT 09:36 | PROVIDERS: ATTEND Orthopaedic Surgery | DX: Z53.9 Procedure and treatment not carried out, unspecified reason (principal) ==

== ENCOUNTER → 2023-02-02 | Outpatient (CLI) | payer OTHER ==
[2023-02-03 02:08] LABS: Basophils # (A) 0.06 X 10*3/uL (0.00-0.10); Basophils % (A) 0.9 %; Eosinophils % (A) 3.1 %; HCT 43.4 % (39.6-50.0); HGB 14.4 g/dL (13.0-17.0); Lymphocytes # (A) 2.09 X 10*3/uL (0.90-5.00); Lymphocytes % (A) 32.4 %; MCH 32.6 pg (27.0-32.0); MCHC 33.2 g/dL (32.0-37.0); MCV 98.2 FL (80.0-97.0); Mean Platelet Volume 8.8 FL (9.5-12.2); Monocytes # (A) 0.61 X 10*3/uL (0.20-1.00); Monocytes % (A) 9.5 %; NRBC Per 100 WBC 0 X 10*3/uL (0.00-0.01); Neutrophils # (A) 3.47 X 10*3/uL (1.80-7.70); Neutrophils % (A) 53.8 %; Platelet Count 287 X 10*3/uL (140-440); RBC 4.42 X 10*6/uL (4.40-5.60); RDW 12.7 % (11.5-14.5); WBC 6.45 X 10*3/uL (4.50-10.00)
[2023-02-03 02:11] LABS: Anion Gap 8.8 mmol/L (4.00-12.00); Carbon Dioxide 28.2 mmol/L (21.6-31.8); Potassium 4.3 mmol/L (3.5-5.5)
== END | disposition home or self-care (01) ==
LOC: LABPAT 16:18
PROVIDERS: ATTEND Orthopaedic Surgery
DX: Z01.812 Encounter for preprocedural laboratory examination (principal); M23.92 Unspecified internal derangement of left knee; R00.1 Bradycardia, unspecified
CPT/HCPCS: 80051; 85025; 93005

== ENCOUNTER 2023-12-19 14:08 | Emergency (ER) | payer OTHER ==
--- NOTE | 2023-12-19 14:51 | ED ---
Extremity Problem HPI - General Source: patient, RN notes reviewed Mode of arrival: ambulatory Limitations: no limitations <Nikky Fermin - Last Filed: 12/19/23 14:50> <Magda Beard - Last Filed: 12/22/23 11:43> - General Chief complaint: Extremity Problem,Nontraumatic Stated complaint: infection-leg Time Seen by Provider: 12/19/23 14:50 - History of Present Illness Initial comments: Quick note: 53-year-old male presented the ER with a chief complaint of right leg infection. Patient states for approximately 6 weeks he has noticed an area of erythema to right inner calf. No known injuries or traumas. Patient was seen by urgent care and diagnosed with impetigo. Patient reports he has recently been feeling chilled and having low-grade fevers. Not diabetic. Patient states he is "around a lot of dirty people". (Nikky Fermin) Patient is a 53-year-old male medical history presenting today for right leg infection. Patient states that beginning of the summer he had a poison oak infection in a similar region however that resolved spontaneously. In mid September he began to notice erythema and a circular rash that he thought was ringworm at the medial aspect of his right knee. He attempted to treat this with topical mupirocin however the rash continued to his knee and became somewhat reticular and then regressed to a well demarcated erythematous lesion with blistering on top. Pt went to "clinic" where he was started on muporicin, which he had already been using at home and was told he had impetigo. Muporicin has not helped his rash. Pt now endorses subjective fevers and chills since Sunday, as well as feeling less energetic. 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 No hx immunocomprimised, DM. States he has also been swimming in the [facility], no recent camping trips. (Magda Beard) - Related Data Home Medications Medication Instructions Recorded Confirmed Mupirocin 2% Oint [Bactroban 2% 1 applic TOPICAL BID 12/19/23 12/19/23 Oint] Previous Rx's Medication Instructions Recorded Cephalexin [Keflex] 500 mg PO Q6HR 7 Days #28 cap 12/19/23 predniSONE [Deltasone] 40 mg PO DAILY 5 Days #8 tab 09/25/24 valACYclovir HCL [Valacyclovir] 1,000 mg PO TID 7 Days #21 tab 12/19/23 Allergies Allergy/AdvReac Type Severity Reaction Status Date / Time codeine Allergy Unknown Verified 12/19/23 16:33 Childhood Penicillins Allergy Unknown Verified 12/19/23 16:33 Childhood Review of Systems ROS Other: All systems not noted in ROS Statement are negative. <Nikky Fermin - Last Filed: 12/19/23 14:50> ROS Other: All systems not noted in ROS Statement are negative. <Magda Beard - Last Filed: 12/22/23 11:43> ROS Statement: Those systems with pertinent positive or pertinent negative responses have been documented in the HPI. Past Medical History Past Medical History: Asthma, Hearing Disorder / Deafness Additional Past Medical History / Comment(s): Hx childhood asthma, hypoglycemia, MENIERE'S DISEASE, constant ringing in right ear, poor hearing, left ear ok, hx kidney stones, diverticulosis. History of Any Multi-Drug Resistant Organisms: None Reported Past Surgical History: Orthopedic Surgery Additional Past Surgical History / Comment(s): Surgery to left middle finger to remove glass, colonoscopy. Past Anesthesia/Blood Transfusion Reactions: No Reported Reaction, Motion Sickness Additional Past Anesthesia/Blood Transfusion Reaction / Comment(s): Vertigo/Meniere's. Past Psychological History: No Psychological Hx Reported Smoking Status: Current every day smoker Past Alcohol Use History: Occasional Past Drug Use History: Marijuana - Past Family History Mother Family Medical History: Cancer Brother(s) Family Medical History: Cancer Father Family Medical History: Cancer Sister(s) Family Medical History: Cancer <Nikky Fermin - Last Filed: 12/19/23 14:50> General Exam Limitations: no limitations <Nikky Fermin - Last Filed: 12/19/23 14:50> <Magda Beard - Last Filed: 12/22/23 11:43> - General Exam Comments Initial Comments: Visual Physical Exam Vital signs reviewed General: Well-appearing, nontoxic, no acute distress. Head: Normocephalic, atraumatic Eyes: PERRLA, EOMI ENT: Airway patent Chest: Nonlabored breathing Skin: No visual rash, normal skin tone Neuro: Alert and oriented 3 Musculoskeletal: No gross abnormalities (Nikky Fermin) PE: CONSTITUTIONAL: No apparent distress, well appearing SKIN: [warm, dry, well demarcated nonblaching 2 cm area of erythema with irregular borders, no fluctuance, +TTP, few overlying veiscular lesions, no warmth, no streaking overlying the medial aspect of the right knee, does not follow a dermatomal distributioin EYES: Pupils are equally round, extraocular movements intact without nystagmus, clear conjunctiva, non-icteric sclera HENT: Normocephalic, atraumatic, moist mucus membranes, oropharynx clear without exudates NECK: , Full range of motion, normal appearance PULMONARY: Clear to auscultation without wheezes, rhonchi, or rales, normal excursion, no accessory muscle use and no stridor CARDIOVASCULAR: Regular rate, rhythm, normal S1 and S2. No appreciated murmurs, rubs or gallops. Extremities are well perfused, 2+ DP pulse palpated. No lower extremity edema GASTROINTESTINAL: Soft, non-tender, non-distended, no palpable masses, no rebound or guarding. No hepatosplenomegaly MUSCULOSKELETAL: Extremities have no gross deformity, no edema, or swelling. No calf swelling. Right knee is not warm or swollen, patient able to range right knee through full range of motion, no signs of injury present, affected extremity is neurovascularly intact NEUROLOGIC:_a/o x 3, GCS 15, normal mentation and speech. Moves all extremities x 4 without motor or sensory deficit PSYCHIATRIC:_normal mood and affect, thought process is clear and linear (Magda Beard) Course Vital Signs 12/19/23 12/19/23 14:15 17:18 Temperature 99.4 F 98.0 F Pulse Rate 66 56 L Respiratory 20 18 Rate Blood Pressure 174/74 173/81 O2 Sat by Pulse 99 97 Oximetry Medical Decision Making <Nikky Fermin - Last Filed: 12/19/23 14:50> <Magda Beard - Last Filed: 12/22/23 11:43> - Medical Decision Making I performed the quick note portion of this chart. Electronically signed by Nikky Fermin PA-C (Nikky Fermin) Was pt. sent in by a medical professional or institution (KASHMIR Llamas, EVP MANAGING DIRECTOR, urgent care, hospital, or prison...) When possible be specific @ -No Did you speak to anyone other than the patient for history (EMS, parent, family, police, friend...)? What history was obtained from this source @ -Spoke with patient's girlfriend who assisted in providing history Did you review nursing and triage notes (agree or disagree)? Why? @ -I reviewed and agree with nursing and triage notes Were old charts reviewed (outside hosp., previous admission, EMS record, old EKG, old radiological studies, urgent care reports/EKG's, prison records)? Report findings @ -No old charts were reviewed Differential Diagnosis (chest pain, altered mental status, abdominal pain women, abdominal pain men, vaginal bleeding, weakness, fever, dyspnea, syncope, headache, dizziness, GI bleed, back pain, seizure, CVA, palpatations, mental health, musculoskeletal)? @ Differntial diagnosis remains broad however top considerations include cellulitis, contact dermatitis, herpes zoster, viral exanthem, abscess this is not all inclusive list EKG interpreted by me (3pts min.). X-rays interpreted by me (1pt min.). @ -None done CT interpreted by me (1pt min.). @ -None done U/S interpreted by me (1pt. min.). @ -None done What testing was considered but not performed or refused? (CT, X-rays, U/S, labs)? Why? @ -Did consider ultrasound and basic labs as well as inflammatory markers, however lesion appears superficail, patient well appearing and nontoxic, VS not meeting SIRS criteria. 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 Discussed this with patient. he was understanding and agreeable. What meds were considered but not given or refused? Why? @ -None Did you discuss the management of the patient with other professionals (bk montiel i.e. , PA, EVP MANAGING DIRECTOR, lab, RT, psych nurse, director of social media marketing, manager medicare, teacher, college service officer, assistant case manager)? Give summary @ -No Was smoking cessation discussed for >3mins.? @ -No Was critical care preformed (if so, how long)? @ -No Were there social determinants of health that impacted care today? How? (Homelessness, low income, unemployed, alcoholism, drug addiction, transportation, low edu. Level, literacy, decrease access to med. care, usp, rehab)? @ -No Was there de-escalation of care discussed even if they declined (Discuss DNR or withdrawal of care, Hospice)? @ -No What co-morbidities impacted this encounter? (DM, HTN, Smoking, COPD, CAD, Cancer, CVA, ARF, Chemo, Hep., AIDS, mental health diagnosis, sleep apnea, morbid obesity)? @ -None Was patient admitted / discharged? Hospital course, mention meds given and route, prescriptions, significant lab abnormalities, going to OR and other pertinent info. @ -Hospital course discharged, Pt is a pleasant 53 y/o male presenting today for rash x 6 weeks. On my assessment patient is well appearing, awake and alert. Pt afebrile, temp 99.4F, hypertensive, pulse 66. Exam signifcant for well demarcated erythmatous raised rash with irregular borders that is about 2 cm in diameter, few overlying vesciular lesions, nonblanching, no fluctuance, no streaking, medial right knee, not overlinig the joint, no swelling, effusion or warmth around joint. Patient able range joint through full ROM. No fluctuance of lesioin. Exam not consistent with abscess. Most consistent with cellulitis vs herpes infection. Discussed with patient plan for steroid, antiviral and antibiotic to cover for the above. in addition will administer toradol for inflammation. Patient agreeable with POC. All questions were answered. Patient discharged in stable condition . In my medical judgment there is currently no evidence of an immediate life- threatening or surgical condition. Discharge is therefore indicated at this time. Discharge treatment instructions, follow up instructions, and appropriate emergency department return precautions were discussed with the patient and/or medical decision maker. Patient and/or medical decision maker expressed unde rstanding of and agreed with the treatment plan, follow up instructions, and emergency department return precaution. All patient's and/or medical decision maker's questions were answered. The patient was advised that a small risk still exists that a serious condition could develop and was therefore instructed to return to the ED for any changes in symptoms, persistent symptoms, inability to obtain proper follow-up or for any further concerns. Patient received verbal and written instructions for this condition. Undiagnosed new problem with uncertain prognosis? @ -No Drug Therapy requiring intensive monitoring for toxicity (Heparin, Nitro, Insulin, Cardizem)? @ -No Were any procedures done? @ -No Diagnosis/symptom? @ -Cellulitis, herpes dermatitis Acute, or Chronic, or Acute on Chronic? @ acute Uncomplicated (without systemic symptoms) or Complicated (systemic symptoms)? @ -Uncomplicated Side effects of treatment? -No Exacerbation, Progression, or Severe Exacerbation? @ -No Poses a threat to life or bodily function? How? (Chest pain, [place], [place], pneumonia, PE, COPD, DKA, ARF, appy, cholecystitis, CVA, Diverticulitis, Homicidal, Suicidal, threat to staff... and all critical care pts) @ -No (Magda Beard) Disposition <Nikky Fermin - Last Filed: 12/19/23 14:50> Is patient prescribed a controlled substance at d/c from ED?: No <Magda Beard - Last Filed: 12/22/23 11:43> Clinical Impression: Cellulitis, Herpes dermatitis Disposition: HOME SELF-CARE Condition: Good Instructions (If sedation given, give patient instructions): Shingles (ED), Cellulitis (ED) Additional Instructions: Every disease is a spectrum and a small chance still exists that a serious condition could develop, for this reason, please monitor yourself closely for new, changing or worsening symptoms, symptoms that persist beyond 72 hours or do not improve after completion of antibiotics and antivirals, confusion, fever (temperature 100.3 degrees or greater), inability to tolerate/keep down fluids or your medications, inability to follow up with outpatient providers as instructed and should you experience these symptoms or should you have any further concerns for your wellbeing please return to the ED or call 911 immediately. PLEASE call your primary care physician as soon as possible to arrange / discuss plan for followup appointment. Appointment in the next 1-3 days is strongly encouraged if possible. PLEASE let us know here before you leave if there is anything further we can do to be of any assistance. Take care and feel Better! Prescriptions: predniSONE [Deltasone] 40 mg PO DAILY 5 Days #8 tab Cephalexin [Keflex] 500 mg PO Q6HR 7 Days #28 cap valACYclovir HCL [Valacyclovir] 1,000 mg PO TID 7 Days #21 tab Referrals: Nabeel Davies [Primary Care Provider] - 1-2 days
[2023-12-19] MEDS: KETOROLAC 15 MG/ML 1 ML VIAL IVP STA (16:53)
[2023-12-19] MEDS: CEPHALEXIN 500 MG CAP PO STA (17:02)
[2023-12-19] MEDS: ACETAMINOPHEN TAB 500 MG TAB PO STA (17:03)
[2023-12-19] MEDS: KETOROLAC 15 MG/ML 1 ML VIAL IM STA (17:03)
[2023-12-19] MEDS: DEXAMETHASONE SOD PHOSPHATE 10 MG/ML 1 ML VIAL IM STA (17:04)
[2023-12-19] MEDS: valACYclovir HCL 1,000 MG TABLET PO STA (17:16)
[2023-12-19 17:19] VITALS: BP 173/81; PULSE 56; RESP 18; TEMP 98
== END 2023-12-19 17:19 | disposition home or self-care (01) ==
LOC: EC 14:08
CPT/HCPCS: 96372; 99283

== ENCOUNTER 2023-12-27 18:35 | Emergency (ER) | payer OTHER ==
[2023-12-27 18:41] VITALS: RESP 18
--- NOTE | 2023-12-27 19:17 | ED ---
Extremity Problem HPI - General Chief complaint: Extremity Problem,Nontraumatic Stated complaint: Recheck shingles Time Seen by Provider: 12/27/23 18:45 Source: patient, RN notes reviewed Mode of arrival: ambulatory Limitations: no limitations - History of Present Illness Initial comments: This is a 53-year-old male who presents to the emergency department for a wound on his right leg. Patient has been dealing with a rash to his right lower extremity for the last couple of months. He has been diagnosed with cellulitis, shingles, impetigo, and ringworm, and undergone treatment for all of them. He does feel like this overall looks much better, but he still has this residual rash by his right knee. He is concerned because this all started after he was in water and is concerned about a encinas water related infection. States that he had a coworker who had a culture of her wound and it came back that she needed a very specific antibiotic. He is requesting a culture of the wound to see if he can get a definitive answer as to the best way to treat this. - Related Data Home Medications Medication Instructions Recorded Confirmed Mupirocin 2% Oint [Bactroban 2% 1 applic TOPICAL BID 12/19/23 12/19/23 Oint] Previous Rx's Medication Instructions Recorded Cephalexin [Keflex] 500 mg PO Q6HR 7 Days #28 cap 12/19/23 predniSONE [Deltasone] 40 mg PO DAILY 5 Days #8 tab 12/19/23 valACYclovir HCL [Valacyclovir] 1,000 mg PO TID 7 Days #21 tab 12/19/23 Allergies Allergy/AdvReac Type Severity Reaction Status Date / Time codeine Allergy Unknown Verified 12/27/23 18:43 Childhood Penicillins Allergy Unknown Verified 12/27/23 18:43 Childhood Review of Systems ROS Statement: Those systems with pertinent positive or pertinent negative responses have been documented in the HPI. ROS Other: All systems not noted in ROS Statement are negative. Past Medical History Past Medical History: Asthma, Hearing Disorder / Deafness Additional Past Medical History / Comment(s): Hx childhood asthma, hypoglycemia, MENIERE'S DISEASE, constant ringing in right ear, poor hearing, left ear ok, hx kidney stones, diverticulosis. History of Any Multi-Drug Resistant Organisms: None Reported Past Surgical History: Orthopedic Surgery Additional Past Surgical History / Comment(s): Surgery to left middle finger to remove glass, colonoscopy. Past Anesthesia/Blood Transfusion Reactions: No Reported Reaction, Motion Sickness Additional Past Anesthesia/Blood Transfusion Reaction / Comment(s): Vertigo/Meniere's. Past Psychological History: No Psychological Hx Reported Smoking Status: Current every day smoker Past Alcohol Use History: Occasional Past Drug Use History: Marijuana - Past Family History Mother Family Medical History: Cancer Additional Family Medical History / Comment(s): COLON, skin, breast, lung Brother(s) Family Medical History: Cancer Additional Family Medical History / Comment(s): 2 BROTHERS WITH SKIN CANCER Father Family Medical History: Cancer Additional Family Medical History / Comment(s): SKIN Sister(s) Family Medical History: Cancer Additional Family Medical History / Comment(s): SKIN General Exam Limitations: no limitations General appearance: alert, in no apparent distress Head exam: Present: atraumatic, normocephalic, normal inspection Respiratory exam: Present: normal lung sounds bilaterally. Absent: respiratory distress, wheezes, rales, rhonchi, stridor Cardiovascular Exam: Present: regular rate, normal rhythm, normal heart sounds. Absent: systolic murmur, diastolic murmur, rubs, gallop, clicks Extremities exam: Present: other (Small circular area of papular lesions with overlying ecchymotic coloring. Mild tenderness.) Neurological exam: Present: alert, oriented X3, CN II-XII intact Psychiatric exam: Present: normal affect, normal mood Course Vital Signs 12/27/23 12/27/23 18:38 20:19 Temperature 97.4 F L 97.8 F Pulse Rate 68 71 Respiratory 18 18 Rate Blood Pressure 155/80 140/81 O2 Sat by Pulse 97 97 Oximetry Medical Decision Making - Medical Decision Making This is a 53 year old male who presents to the emergency department for a rash o n his right leg. Was pt. sent in by a medical professional or institution? @ -No Did you speak to anyone other than the patient for history? @ -No Did you review nursing and triage notes? @ -Yes, and I agree, it is accurate with regards to the patient's symptoms. Were old charts reviewed? @ -No Differential Diagnosis? @ -Differential Rash: Roseola, measles, Lyme disease, erythema multiforme, cellulitis, toxic shock syndrome, Salvador Vik syndrome, Kawasaki disease, cecilia mountain spotted fever, contact dermatitis, allergic dermatitis, measles, mumps, rubella, varicella, meningococcal disease, drug reaction, coxsackievirus, This is not meant to be an all-inclusive list. EKG interpreted by me (3pts min.)? @ -Not obtained X-rays interpreted by me (1pt min.)? @ -Not obtained CT interpreted by me (1pt min.)? @ -Not obtained U/S interpreted by me (1pt. min.)? @ -Not obtained What testing was considered but not performed? (CT, X-rays, U/S, labs)? Why? @ -None What meds were considered but not given? Why? @ -None Did you discuss the management of the patient with other professionals? @ -No Did you reconcile home meds? @ -No Was smoking cessation discussed for >3mins.? @ -No Was critical care preformed (if so, how long)? @ -No Were there social determinants of health that impacted care today? How? (Homelessness, low income, unemployed, alcoholism, drug addiction, transporta tion, low edu. Level, literacy, decrease access to med. care, halfway, rehab)? @ -No Was there de-escalation of care discussed even if they declined? (Discuss DNR or withdrawal of care, Hospice)? @ -No What co-morbidities impacted this encounter? (DM, HTN, Smoking, COPD, CAD, Cancer, CVA, Hep., AIDS, mental health diagnosis, sleep apnea, morbid obesity)? @ -None Was patient admitted / discharged? @ -Discharged. On exam he had a small patch of purple discoloration and in the center had a couple of raised/papular areas. This did not appear consistent with anything he had recently been treated for. A #11 blade scalpel was used to make a small incision into one of the papular lesions. There was a small amount of purulence followed by bloody material. This was sent for aerobic and anaerobic wound cultures. Advised he contact the hospital in a couple of days if he does not hear anything. He was also given information for follow-up with dermatology. Patient discharged home in stable condition. Case discussed with ED attending Dr. Underwood. Return precautions reviewed in depth, the patient is instructed to return to the emergency department with any new, worsening, or concerning symptoms. Patient verbalized understanding. Undiagnosed new problem with uncertain prognosis? @ -None Drug Therapy requiring intensive monitoring for toxicity (Heparin, Nitro, Insulin, Cardizem)? @ -None Were any procedures done? @ -None Diagnosis/symptom? @ -Right leg wound Acute, or Chronic, or Acute on Chronic? @ -Chronic Uncomplicated (without systemic symptoms) or Complicated (systemic symptoms)? @ -Uncomplicated Side effects of treatment? @ -None Exacerbation, Progression, or Severe Exacerbation] @ -Improving Poses a threat to life or bodily function? @ -No Disposition Clinical Impression: Leg wound, right Disposition: HOME SELF-CARE Additional Instructions: Return to the emergency department with any new, worsening, or concerning symptoms. Your wound will be sent for culture and we will contact you with the results when they return. Please call the hospital if you do not hear from us in 2 to 3 days. Consider following up with dermatology as listed below for fur ther evaluation as well. Is patient prescribed a controlled substance at d/c from ED?: No Referrals: None,Stated [Primary Care Provider] - 1-2 days Smiley Hernandez MD [STAFF PHYSICIAN] - 1-2 days Time of Disposition: 19:56
[2023-12-27] MEDS: LIDOCAINE/EPINEPHR/TETRACAINE 5 ML BOTTLE TOPICAL ONE (19:18)
[2023-12-27 20:20] VITALS: BP 140/81; PULSE 71; TEMP 97.8
== END 2023-12-27 20:25 | disposition home or self-care (01) ==
LOC: EC 18:35
CPT/HCPCS: 87070; 87075; 87205; 99283

== ENCOUNTER → 2024-04-25 | Outpatient (CLI) | payer OTHER ==
--- NOTE | 2024-04-25 10:31 | CTL ---
EXAMINATION TYPE: CT Low Dose Lung DATE OF EXAM ORDERED: 04/25/2024 COMPARISON: No direct comparisons. CLINICAL INDICATION: Male, 53 years old with history of Z12.2 ENCNTR SCREEN FOR MALIGNANT NEOPLASM OF RESP; PHH, Personal hx nicotine dependence, current smoker, 1 ppd x 20 years, no concerns, Lung canc er screening, History of Smoking/tobacco use. TECHNIQUE: Low dose computed tomography scan was performed through the chest at 1 mm thick sections a nd reconstructed images in multiple planes at 1 mm and [address] DLP: 109.[address] CTDI: 2.8 mGy Automated exposure control for dose reduction was used. CT DIAGNOSTIC QUALITY: Satisfactory FINDINGS: Nodules: Benign calcified nodule within the left apex measuring up to 5.8 mm (series 6, image 10). Medial right upper lobe 4.4 mm pulmonary nodule (series 6, image 19). Right middle lobe 5.1 mm pulmonary nodule (series 6, image 41). LUNGS: COPD: Severity: Moderate Fibrosis: Severity: None Lymph nodes: None Other findings: Minimal biapical pleural-parenchymal scarring. RIGHT PLEURAL SPACE: Effusion: None Calcification: None Thickening: None Pneumothorax: None LEFT PLEURAL SPACE: Effusion: None Calcification: None Thickening: None Pneumothorax: None HEART: Heart Size: Normal Coronary Calcification: None Pericardial Effusion: None OTHER FINDINGS: Upper abdomen: None Bony thorax: None Supraclavicular region: None Other: Minimal bilateral gynecomastia. IMPRESSION: 1. Few pulmonary nodules measuring less than 6 [address] 2. Moderate COPD changes. CT LUNG RAD AND CT CHEST RECOMMENDATION: Lung-Rad 2 Benign Appearance or Behavior: Continue annual sc reening with LDCT in 12 months. S Modifier (other clinically significant findings): None [facility], , 04/25/2024 10:29 AM
== END | disposition home or self-care (01) ==
LOC: RADCTMAIN 08:55
PROVIDERS: ATTEND Student in an Organized Health Care Education/Training Program
DX: Z12.2 Encounter for screening for malignant neoplasm of respiratory organs (principal); J44.9 Chronic obstructive pulmonary disease, unspecified; R91.8 Other nonspecific abnormal finding of lung field; F17.210 Nicotine dependence, cigarettes, uncomplicated
CPT/HCPCS: 71271